=== PATIENT | female | born 1965 | race Asian ===

== ENCOUNTER 2022-01-15 18:21 | Emergency (ER) | payer SELFPAY ==
[~2022-01-15] VITALS: Ht 149.9 cm; Wt 51.4 kg
[2022-01-15] MEDS ORDERED: metformin PO (19:14)
[2022-01-15] MEDS ORDERED: [UNRECOGNIZED DRUG - OTHER] PO (19:18)
[2022-01-15] MEDS ORDERED: LISIN PO (19:18)
[2022-01-15] MEDS ORDERED: ASPI-1450 PO (19:18)
[2022-01-15] MEDS ORDERED: GAB PO (19:18)
[2022-01-15 19:24] VITALS: BP 123/90
[2022-01-15 19:24] LABS: ANION GAP 14 mmol/L (8-16); CALCIUM, TOTAL 9.1 mg/dL (8.8-10.5); CARBON DIOXIDE 25 mmol/L (22-29); CHLORIDE 102 mmol/L (98-107); CREATININE 0.68 mg/dL (0.60-1.30); GLOMERULAR FILTR. RATE CALC > 60 mL/min (>60); GLUCOSE,RANDOM 289 mg/dL (70-110); POTASSIUM 3.6 mmol/L (3.5-5.1); SODIUM SERUM 141 mmol/L (136-145); UREA NITROGEN, BLOOD 11 mg/dL (7-18)
[2022-01-15 19:38] LABS: ALANINE AMINOTRANSFERASE 24 U/L (12-78); ALBUMIN 3.8 g/dL (3.4-5.0); ALKALINE PHOSPHATASE 57 U/L (46-116); ASPARTATE AMINOTRANSFERASE 21 U/L (15-37); BILIRUBIN,TOTAL 0.8 mg/dL (0.1-1.0); LIPASE 164 U/L (73-393); TOTAL PROTEIN, SERUM 7.6 g/dL (6.4-8.2)
== END 2022-01-15 21:33 | disposition home or self-care (01) ==
LOC: EMS 18:24
DX: R45.851 Suicidal ideations (principal); F32.9 Major depressive disorder, single episode, unspecified; I10 Essential (primary) hypertension
CPT/HCPCS: 99285; 80053; 83690; 36415; G0480